=== PATIENT | female | born 1950 | race Caucasian/White ===

== ENCOUNTER 2020-06-22 13:02 | Inpatient (IN) | payer MEDICARE, OTHER ==
[~2020-06-22] VITALS: Ht 160 cm; Wt 81.2 kg
--- NOTE | 2020-06-22 13:10 | NUR ---
WORSENING CHEST PAIN SINCE YESTERDAY TESTED POSITIVE TO COVID-19 5 DAYS AGO AT A [facility]. PT AAOX4, VSS. RR EVEN & UNLABORED. DENIES DIZZINESS, N/V/D AT THIS TIME. AWAITING EVAL BY JOE. PLACED ON INLAYER SILVER, SR. WILL CONT TO MONITOR.
--- NOTE | 2020-06-22 13:18 | NUR ---
MOVE SHEET SUBMITTED
--- NOTE | 2020-06-22 13:58 | NUR ---
COVID SWAB SENT TO LAB
--- NOTE | 2020-06-22 13:58 | NUR ---
BLOOD COLLECTED AND SENT TO LAB
[2020-06-22 14:05] LABS: BASOPHILS % (AUTO) 0.5 % (0.0-2.0); EOSINOPHILS % (AUTO) 0.1 % (0.0-6.0); HEMATOCRIT 43 % (33-45); HEMOGLOBIN 14.2 g/dL (11.5-14.8); LYMPHOCYTES # (AUTO) 0.9 /CMM (0.8-4.8); LYMPHOCYTES % (AUTO) 25.1 % (20.0-44.0); MEAN CORPUSCULAR HGB CONC 33 g/dl (31.0-36.0); MEAN CORPUSCULAR VOLUME 90 fL (82-100); MONOCYTES # (AUTO) 0.5 /CMM (0.1-1.30); MONOCYTES % (AUTO) 12.3 % (2.0-12.0); NEUTROPHILS # (AUTO) 2.3 /CMM (1.8-8.9); PLATELET COUNT (AUTO) 131 /CMM (150-450); RED BLOOD CELL COUNT(AUTO) 4.79 MIL/uL (4.0-5.2); WHITE BLOOD COUNT (AUTO) 3.7 K/uL (4.3-11.0)
[2020-06-22 14:21] LABS: D-DIMER 1.97 mg/L(FEU (0.17-0.50)
[2020-06-22] MEDS ORDERED: CHOL100062 PO (14:27)
[2020-06-22] MEDS ORDERED: ASCO-352 PO (14:27)
[2020-06-22] MEDS ORDERED: ZINC50TA65 PO (14:27)
[2020-06-22] MEDS ORDERED: ACET-868 PO (14:27)
[2020-06-22] MEDS ORDERED: ROSU10TA29 PO (14:27)
[2020-06-22] MEDS ORDERED: ASPI-1169 PO (14:27)
[2020-06-22] MEDS ORDERED: AZITHROMYCIN 500 MG in IV D5W 250 ML IV ONE (15:00)
[2020-06-22] MEDS ORDERED: CEFTRIAXONE 1 G in IV D5W 50 ML IV ONE (15:00)
[2020-06-22 15:05] LABS: ALANINE AMINOTRANSFERASE 64 U/L (12-78); ALBUMIN 3.1 g/dL (3.4-5.0); ALKALINE PHOSPHATASE 66 U/L (46-116); ASPARTATE AMINOTRANSFERASE 78 U/L (15-37); B-TYPE NATRIURETIC PEPTIDE 65 PG/ML (0-125); BILIRUBIN,TOTAL 0.3 mg/dL (0.2-1.0); CALCIUM, SERUM 8.7 mg/dL (8.5-10.1); CARBON DIOXIDE 27 mmol/L (21-32); CHLORIDE 101 mmol/L (98-107); CREATININE 0.9 mg/dL (0.6-1.3); GLUCOSE 98 mg/dL (74-106); POTASSIUM 3.7 mmol/L (3.5-5.1); SODIUM SERUM 137 mmol/L (136-145); TOTAL PROTEIN, SERUM 7.3 g/dL (6.4-8.2); UREA NITROGEN, BLOOD 15 mg/dL (7-18)
--- NOTE | 2020-06-22 15:16 | NUR ---
PT STABLE, ON TELE, SR. VSS. NO RESP DISTRESS NOTED AT THIS TIME. WILL CONT TO MONITOR.
[2020-06-22 15:19] LABS: CREATINE KINASE, TOTAL 274 U/L (26-192); FERRITIN 859 ng/mL (8-388)
[2020-06-22 15:20] LABS: C-REACTIVE PROTEIN 4.4 mg/dL (0.0-0.9)
[2020-06-22] MEDS ORDERED: IOHEXOL-350 100 ML VIAL IV ONE (15:23)
[2020-06-22] MEDS ORDERED: IV NS 0.9% 250 ML IV ONE (15:23)
--- NOTE | 2020-06-22 16:00 | NUR ---
PT TO CT VIA RIDGE
--- NOTE | 2020-06-22 16:15 | NUR ---
PT BACK IN RM 5
--- NOTE | 2020-06-22 17:04 | NUR ---
CALLED SAMANTHA FOR READ.
--- NOTE | 2020-06-22 17:06 | NUR ---
PT ASLEEP, EASILY AWAKEN BY VERBAL STIMULI. VSS. RR EVEN & UNLABORED. NAD NOTED AT THIS TIME. WILL CONT TO MONITOR.
--- NOTE | 2020-06-22 18:20 | NUR ---
GOT BED 206
[2020-06-22] MEDS ORDERED: MAG HYDROX/AL HYDROX/SIMETH 30 ML UDC PO PRN (18:30)
[2020-06-22] MEDS ORDERED: Z GUARD REMEDY 2 OZ OINT TP PRN (18:30)
[2020-06-22] MEDS ORDERED: MAGNESIUM HYDROXIDE 30 ML UDC PO PRN (18:30)
[2020-06-22] MEDS ORDERED: HYDROCODONE/APAP 5/325MG TABLET PO PRN (18:30)
[2020-06-22] MEDS ORDERED: ONDANSETRON HCL/PF 4 MG/2 ML VIAL IVP PRN (18:30)
[2020-06-22] MEDS ORDERED: DEXAMETHASONE 1 MG TABLET PO ONE (18:30)
--- NOTE | 2020-06-22 19:39 | NUR ---
REPORT GIVEN TO RAMON LAYTON FOR GURWINDER
[2020-06-22 20:00] VITALS: BP 123/67
[2020-06-22] MEDS ORDERED: REMDESIVIR IV ONE (20:00)
[2020-06-22] MEDS ORDERED: NS 0.9% IV ONE (20:00)
--- NOTE | 2020-06-22 20:15 | NUR ---
MIX MAKER OPENING NOTES RECEIVED PATIENT FROM ER VIA buySAFERNEY ALERT AND ORIENTED X 3 MARSHALLESE SPEAKING. AMBULATORY, VERBALLY RESPONSIVE AND ABLE TO FOLLOW DIRECTIONS. BREATHING REGULAR AND UNLABORED ON OXYGEN AT 3L/MIN VIA NASAL CANNULA, LATEST SPO2 99%. RIGHT AC G20 AND RIGHT WRIST G22 IV LINES INTACT AND PATENT, FLUSHING WELL WITH NO BLEEDING OR S/S OF INFILTRATION NOTED. BODY ASSESSMENT DONE, SKIN INTACT CLEAN AND DRY. ATTACHED ON CARDIAC MONITORING WITH NSR ON 78bpm. DENIES SUICIDAL IDEATION OR PAIN/DISCOMFORT AT THIS TIME. WISHED TO BE FULL CODE. DVT PUMP ON. BED LOW AND LOCKED ON SEMI FOWLERS POSITION. CALL LIGHT IN REACH. BED ALARM ON. WILL CONTINUE TO MONITOR.
--- NOTE | 2020-06-22 20:26 | NUR ---
PT TRANSFERRED TO ROOM VIA ACLS PROTOCOL
[2020-06-22 20:30] VITALS: BP 123/67
--- NOTE | 2020-06-22 20:30 | NUR ---
DISPENSING LEAD NOTES BODY TEMP 100.4; TYLENOL 650MG GIVEN BY MOUTH. COOLING MEASURES PROVIDED. WILL RECHECK TEMPERATURE IN 1HR.
[2020-06-22] MEDS: ENOXAPARIN SODIUM 40 MG/0.4 ML DISP.SYRIN SQ SCH (21:02)
[2020-06-22] MEDS: ACETAMINOPHEN 325 MG TABLET PO PRN (21:19)
--- NOTE | 2020-06-22 21:30 | NUR ---
WILDLIFE PROTECTOR NOTES BODY TEMP. 98.9
[2020-06-22 22:05] LABS: ALBUMIN 2.9 g/dL (3.4-5.0); BILIRUBIN,DIRECT 0.1 mg/dL (0.0-0.2); BILIRUBIN,TOTAL 0.3 mg/dL (0.2-1.0); CALCIUM, SERUM 8.2 mg/dL (8.5-10.1); CREATININE 0.8 mg/dL (0.6-1.3); POTASSIUM 3.8 mmol/L (3.5-5.1)
[2020-06-23] VITALS: BP 101/58
[2020-06-23 04:00] VITALS: BP 114/63
[2020-06-23] MEDS: PANTOPRAZOLE 40 MG TABLET.DR PO SCH (06:32)
[2020-06-23] MEDS: ACETAMINOPHEN 325 MG TABLET PO PRN ×3 (06:32→21:06)
--- NOTE | 2020-06-23 06:40 | NUR ---
SHIRT IRONER CLOSING NOTES PATIENT IN BED ALERT AND ORIENTED X 3 S[place]TH [place]OREAN SPEAKING. AFEBRILE WITH NO S/S OF DISTRESS OBSERVED, LATEST SPO2 98%. RIGHT AC G20 AND RIGHT WRIST G22 IV LINES PATENT AND FLUSHING WELL. MAINTAINED ON CARDIAC MONITORING WITH NSR ON 80bpm. COMPLAINED OF 3/10 HEADACHE. TYLENOL 650MG GIVEN BY MOUTH. NON-PHARMACOLOGICAL INTERVENTIONS PROVIDED. BED LOW AND LOCKED ON SEMI FOWLERS POSITION. CALL LIGHT IN REACH. BED ALARM ON. WILL ENDORSE TO MORNING SHIFT FOR GURWINDER.
[2020-06-23 07:11] LABS: BASOPHILS % (AUTO) 0.3 % (0.0-2.0); HEMATOCRIT 43 % (33-45); HEMOGLOBIN 13.9 g/dL (11.5-14.8); LYMPHOCYTES # (AUTO) 1.2 /CMM (0.8-4.8); LYMPHOCYTES % (AUTO) 36.5 % (20.0-44.0); MEAN CORPUSCULAR HGB CONC 33 g/dl (31.0-36.0); MEAN CORPUSCULAR VOLUME 90 fL (82-100); MONOCYTES # (AUTO) 0.5 /CMM (0.1-1.30); NEUTROPHILS # (AUTO) 1.6 /CMM (1.8-8.9); NEUTROPHILS % (AUTO) 49.2 % (43.0-81.0); PLATELET COUNT (AUTO) 142 /CMM (150-450); RED BLOOD CELL COUNT(AUTO) 4.72 MIL/uL (4.0-5.2); WHITE BLOOD COUNT (AUTO) 3.3 K/uL (4.3-11.0)
[2020-06-23 07:52] LABS: CALCIUM, SERUM 8.5 mg/dL (8.5-10.1); CREATININE 0.7 mg/dL (0.6-1.3); MAGNESIUM 2.5 mg/dL (1.8-2.4); PHOSPHORUS 4.1 mg/dL (2.5-4.9); POTASSIUM 3.7 mmol/L (3.5-5.1)
--- NOTE | 2020-06-23 07:52 | NUR ---
COMMAND AND CONTROL OPENING SHIFT NOTES RECEIVED PATIENT RESTING IN BED A/O X 3 [place] SPEAKING. ON O2 @3L VIA NC WITH NO S/S OF ACUTE RESPIRATORY DISTRESS NOTED. PATIENT ON TELE MONITOR WITH NSR AND EPISODES OF SINUS DELVIN, IV TO RT AC #20G AND RT WRIST #22G. BED IS AT LOWEST POSITION AND LOCKED WITH SIDE RAILS UP X2 AND CALL LIGHT IN REACH.WILL CONTINUE TO MONITOR PATIENT THROUGHOUT SHIFT. ALL SAFETY PRECAUTIONS IN PLACE
[2020-06-23 08:04] LABS: THYROID STIMULATING HORMONE 0.559 uIU/mL (0.358-3.74)
[2020-06-23] MEDS: ASPIRIN 81 MG TAB.CHEW PO SCH (08:51)
[2020-06-23] MEDS: CHOLECALCIFEROL 1,000 UNIT TABLET (VIT D3) PO SCH (08:51)
[2020-06-23 09:16] LABS: C-REACTIVE PROTEIN 6.5 mg/dL (0.0-0.9)
[2020-06-23 09:31] VITALS: BP 110/66
[2020-06-23] MEDS ORDERED: GUAIFENESIN/D-METHORPHAN HB 5 ML UDC PO PRN (10:30)
--- NOTE | 2020-06-23 13:30 | NUR ---
Tele/RN - Notes Lab called, pt tested positive for Covid PCR. Dr. Saldana made aware.
[2020-06-23] MEDS: AZITHROMYCIN 500 MG in IV D5W 250 ML IV SCH (14:39)
[2020-06-23] MEDS: CEFTRIAXONE 1 G in IV D5W 50 ML IV SCH (15:40)
[2020-06-23 16:00] VITALS: BP 110/60
[2020-06-23] MEDS: DOCUSATE SODIUM 100 MG CAPSULE PO SCH (16:18)
[2020-06-23] MEDS: ENOXAPARIN SODIUM 40 MG/0.4 ML DISP.SYRIN SQ SCH (17:49)
--- NOTE | 2020-06-23 18:10 | NUR ---
CHIEF PHARMACIST CLOSING SHIFT NOTES PATIENT RESTING IN BED A/O X 3 PERUVIAN SPEAKING. SHE IS ON O2 @3L VIA NC WITH NO SIGNS OF SOB, NO SIGNS OF ACUTE RESPIRATORY DISTRESS NOTED. PT BREATHING EVEN AND UNLABORED. WITH INTERMITTENT COUGHING NOTED. PATIENT IS ON TELE MONITOR WITH NSR AND SINUS DELVIN RANGING 5O'S BPM. IV TO RT AC #20G AND RT WRIST #22G PATENT AND INTACT. NO REDNESS OR SWELLING NOTED, NO SIGNS OF INFILTRATION NOTED. PATIENT IS AMBULATORY, WITH BRP. SKIN INTACT. C/O MILD BACK PAIN, TYLENOL ADMINISTERED FOR PAIN. BED IS AT LOWEST POSITION AND LOCKED WITH SIDE RAILS UP X2; CALL LIGHT IS WITHIN REACH. ALL SAFETY PRECAUTIONS IN PLACE.WILL ENDORSE TO MANAGEMENT TRAINER
--- NOTE | 2020-06-23 19:31 | NUR ---
MINERAL ECONOMIST OPENING NOTES PATIENT AWAKE IN BED. A/OX3; ABLE TO VERBALIZE NEEDS. ON 3L NC; NO S/S OF ACUTE RESPIRATORY DISTRESS; BREATHING IS EVEN AND UNLABORED. NO C/O PAIN AT THIS TIME. TELE MONITOR READING NSR, HEART RATE 75. IV PRESENT ON RIGHT WRIST, SIZE 22, INTACT & PATENT, HEP LOCKED. IV PRESENT ON RIGHT AC SIZE 20, INTACT & PATENT, HEP LOCKED. CONTACT/DROPLET PRECAUTIONS IN PLACE FOR POSITIVE COVID 19. SAFETY MEASURES IN PLACE AND PATIENT'S NEEDS MET. BED LOCKED, HOB ELEVATED, SIDE RAILS X2, CALL LIGHT WITHIN REACH. WILL CONTINUE TO MONITOR.
[2020-06-23 20:00] VITALS: BP 103/66
[2020-06-23 20:13] LABS: ALBUMIN 2.6 g/dL (3.4-5.0); BILIRUBIN,DIRECT 0.1 mg/dL (0.0-0.2); BILIRUBIN,TOTAL 0.2 mg/dL (0.2-1.0); CALCIUM, SERUM 8.2 mg/dL (8.5-10.1); CREATININE 0.8 mg/dL (0.6-1.3); POTASSIUM 3.3 mmol/L (3.5-5.1); TOTAL PROTEIN, SERUM 6.5 g/dL (6.4-8.2)
[2020-06-23] MEDS: REMDESIVIR IV SCH (20:28)
[2020-06-23] MEDS: NS 0.9% IV SCH (20:28)
[2020-06-23] MEDS: ATORVASTATIN 10 MG TABLET PO SCH (21:06)
[2020-06-23 21:51] VITALS: BP 103/66
[2020-06-24] VITALS (7 sets, daily range): BP systolic 101–125; BP diastolic 52–66
[2020-06-24] MEDS: ACETAMINOPHEN 325 MG TABLET PO PRN ×2 (06:12→16:18)
[2020-06-24] MEDS: PANTOPRAZOLE 40 MG TABLET.DR PO SCH (06:32)
[2020-06-24 06:35] LABS: BASOPHILS % (AUTO) 0.3 % (0.0-2.0); EOSINOPHILS % (AUTO) 0.5 % (0.0-6.0); HEMATOCRIT 43 % (33-45); HEMOGLOBIN 14.2 g/dL (11.5-14.8); LYMPHOCYTES # (AUTO) 1.6 /CMM (0.8-4.8); LYMPHOCYTES % (AUTO) 32.1 % (20.0-44.0); MEAN CORPUSCULAR HGB CONC 33 g/dl (31.0-36.0); MEAN CORPUSCULAR VOLUME 89 fL (82-100); MONOCYTES # (AUTO) 0.5 /CMM (0.1-1.30); MONOCYTES % (AUTO) 10.3 % (2.0-12.0); NEUTROPHILS # (AUTO) 2.8 /CMM (1.8-8.9); NEUTROPHILS % (AUTO) 56.8 % (43.0-81.0); PLATELET COUNT (AUTO) 157 /CMM (150-450); RED BLOOD CELL COUNT(AUTO) 4.84 MIL/uL (4.0-5.2)
[2020-06-24 07:25] LABS: CALCIUM, SERUM 8.4 mg/dL (8.5-10.1); CREATININE 0.7 mg/dL (0.6-1.3); MAGNESIUM 2.4 mg/dL (1.8-2.4); PHOSPHORUS 2.8 mg/dL (2.5-4.9); POTASSIUM 3.7 mmol/L (3.5-5.1)
--- NOTE | 2020-06-24 07:57 | NUR ---
NATIONAL ACCOUNT MANAGER CLOSING NOTES PATIENT AWAKE IN BED. A/OX3; ON 3L NC; NO S/S OF ACUTE RESPIRATORY DISTRESS; BREATHING IS EVEN AND UNLABORED. NO C/O PAIN AT THIS TIME. TELE MONITOR READING NSR. IV PRESENT ON RIGHT WRIST, SIZE 22, INTACT & PATENT, HEP LOCKED. IV PRESENT ON RIGHT AC SIZE 20, INTACT & PATENT, HEP LOCKED. SAFETY MEASURES IN PLACE AND PATIENT'S NEEDS MET. BED LOCKED, HOB ELEVATED, SIDE RAILS X2, CALL LIGHT WITHIN REACH. ENDORSED TO DAY SHIFT RN PLAN OF CARE.
--- NOTE | 2020-06-24 08:08 | NUR ---
RN OPEN NOTES PATIENT IS A/O X 3 WITH NO SIGNS OF ACUTE DISTRESS ON 5L OF NASAL CANNULA SPO2 AT 96%, NO SIGNS OF PAIN AT THIS MOMENT. IV R WRIST#22 G INTACT AND R AC #20G INTACT. TELE MONITOR SB/SR 50-60'S. COUGHING PRESENT. SAFETY MEASURES ARE APPLIED, BED IS LOW AND LOCKED POSITION. SIDE RAILS UP X 2 FOR SAFETY. CALL LIGHT WITHIN REACH. WILL CONTINUE TO MONITOR.
[2020-06-24] MEDS ORDERED: PNEUMOCOCCAL 23-VAL P-SAC VAC 0.5 ML VIAL SQ ONE (09:00)
[2020-06-24 09:01] LABS: ALBUMIN 2.6 g/dL (3.4-5.0); BILIRUBIN,DIRECT 0.1 mg/dL (0.0-0.2); BILIRUBIN,TOTAL 0.2 mg/dL (0.2-1.0); TOTAL PROTEIN, SERUM 6.6 g/dL (6.4-8.2)
[2020-06-24] MEDS: CHOLECALCIFEROL 1,000 UNIT TABLET (VIT D3) PO SCH (09:22)
[2020-06-24] MEDS: ASPIRIN 81 MG TAB.CHEW PO SCH (09:23)
[2020-06-24] MEDS: DOCUSATE SODIUM 100 MG CAPSULE PO SCH (09:23)
--- NOTE | 2020-06-24 09:55 | NUR ---
PATIENT COMPLAINED OF FEELING CHEST TIGHTNESS, SPO2 AT 98% IN 3L OF NASAL CANNULA AND HOB ELEVATED. INFORMED DR. ROBERTSON AND ORDERED INHALER. NOTED AND CARRIED OUT. WILL CONTINUE TO MONITOR.
[2020-06-24] MEDS ORDERED: ALBUTEROL SULFATE INH 18 GM HFA.AER.AD IH PRN (12:00)
--- NOTE | 2020-06-24 14:55 | NUR ---
UNABLE TO TRANSFUSE PLASMA BECAUSE BAR CODE FAILED TO MATCH PATIENTS UNIT BAG, AFTER SEVERAL TIMES OF LAB TRYING TO FIX THE ISSUE OF THE SCAN BAR, THEY HAD TO TAKE THE PLASMA BAG SINCE THE BAG WAS OUT FOR LONGER THAN 30 MINS. INFORMED CHARGE NURSE SUREKHA AND DR. BEVERLY. DR. BEVERLY RE-ORDERED ANOTHER SET OF PLASMA.
[2020-06-24] MEDS: AZITHROMYCIN 500 MG in IV D5W 250 ML IV SCH (15:09)
--- NOTE | 2020-06-24 15:59 | NUR ---
KAVYA FROM BLOOD BANK SAID PLASMA WONT BE READY UNTIL 1-2 DAYS BECAUSE IT COMES FROM [place], SHE STATED THAT THE PLASMA WAS GIVING TO ME 2 HOURS AT 1230 BUT I EXPLAINED TO HER THAT THAT PLASMA DID NOT STAY WITH ME THE WHOLE 2 HOURS SINCE I HAD TO GO BACK AND FORTH TO LAB 5 TIMES TO RETURN THE PLASMA DUE TO THE FACT THAT THE BAR CODE WOULD SAY THAT IT DID NOT MATCH THE UNIT. SHE SAID THAT IT HAD TO BE OVER WRITTEN IF THE BAR CODE DID NOT SCAN AND INSISTED THAT THE PLASMA WAS ON THE FLOOR FOR 2 HOURS WHEN THE PLASMA KEPT GETTING RETURNED 5 TIMES AFTER BAR CODE WOULD FAIL TO MATCH SCHUYLER Bunch RN ATTEMPTED TO SCAN ALSO AND IT WOULD SAY THAT UNIT DID NOT MATCH. SPOKE WITH SUREKHA CHARGE NURSE AND IS AWARE.
[2020-06-24] MEDS: CEFTRIAXONE 1 G in IV D5W 50 ML IV SCH (17:08)
[2020-06-24] MEDS: ENOXAPARIN SODIUM 40 MG/0.4 ML DISP.SYRIN SQ SCH (18:19)
--- NOTE | 2020-06-24 18:42 | NUR ---
BIOMEDICAL EQUIPMENT TECHNICIAN CLOSED NOTES PATIENT IS A/O X 3 WITH NO SIGNS OF ACUTE DISTRESS IN ROOM AIR SPO2 92% ON TELE MONITOR SB 56. NO SIGNS OF PAIN AT THIS MOMENT. IV R WRIST#22 G INTACT AND R AC #20G INTACT. PATIENT KEPT CLEAN AND DRY. ALL NEEDS, CARE, TREATMENT AND MEDICATIONS ADMINISTERED ANTICIPATED PER ORDER. SAFETY MEASURES ARE APPLIED, BED IS LOW AND LOCKED POSITION. SIDE RAILS UP X 2 FOR SAFETY. CALL LIGHT WITHIN REACH. WILL ENDORSE TO THE NEXT BIOSOLIDS MANAGEMENT TECHNICIAN.
--- NOTE | 2020-06-24 19:30 | NUR ---
television maintenance worker opening notes received patient in bed. a/ox3. maltese speaking, able to make basic needs known. toerating room air. respirations even and unlabored. no s/s sob noted. no s/s pain noted. external tele monitor reads sinus rhythm hr 67. in no apparent distress. iv access in right wrist#22 and rac#20 patent and saline locked. bed is low and locked, hob elevated in semi fowlers, side rails up x2, call light within reach. will continue to monitor.
[2020-06-24 20:02] LABS: ALBUMIN 2.6 g/dL (3.4-5.0); BILIRUBIN,DIRECT 0.1 mg/dL (0.0-0.2); BILIRUBIN,TOTAL 0.2 mg/dL (0.2-1.0); CALCIUM, SERUM 8.1 mg/dL (8.5-10.1); CREATININE 0.7 mg/dL (0.6-1.3); POTASSIUM 3.3 mmol/L (3.5-5.1); TOTAL PROTEIN, SERUM 6.6 g/dL (6.4-8.2)
[2020-06-24] MEDS: REMDESIVIR IV SCH (20:06)
[2020-06-24] MEDS: NS 0.9% IV SCH (20:06)
[2020-06-24] MEDS: ZOLPIDEM TARTRATE 5 MG TABLET PO PRN (21:32)
--- NOTE | 2020-06-24 21:32 | NUR ---
ORNAMENTAL METAL WORKER NOTE ADMINISTERED PRN AMBIEN 5MG PER PATIENT REQUEST FOR SLEEP. WILL CONTINUE TO MONITOR.
[2020-06-24] MEDS: ATORVASTATIN 10 MG TABLET PO SCH (23:14)
[2020-06-25] VITALS (7 sets, daily range): BP systolic 106–128; BP diastolic 68–73
--- NOTE | 2020-06-25 06:55 | NUR ---
telecom analyst closing notes patient resting in bed. a/ox3. tolerating room air. no resp distress. no c/o pain. external tele monitor reads sinus rhythm. no distress. iv access maintained in right wrist#22 and rac#20 patent and saline locked. bed remains low and locked, hob elevated in semi fowlers, side rails up x2, call light within reach. will endorse to next shift.
[2020-06-25] MEDS: PANTOPRAZOLE 40 MG TABLET.DR PO SCH ×2 (07:30→09:23)
--- NOTE | 2020-06-25 07:30 | NUR ---
RN NOTE THE PATIENT IS RECEIVED IN BED. THE PATIENT IS ALERT AND ORIENTED X4. DENIES SOB. PATIENT IS IN ROOM AIR. RESPIRATION REGULAR AND UNLABORED. DENIES PAIN. THE PATIENT IS IN NO APPARENT DISTRESS. TELE BOX READING IS SINUS TACHYCARDIA 106. RIGHT WRIST G 22 PATENT AND RAC G 20 PATENT AND BOTH SALINE LOCKED. BED LOW AND LOCKED. SIDE RAILS UP X2. CALL LIGHT WITHIN REACH. WILL CONTINUE TO MONITOR.
[2020-06-25] MEDS: DOCUSATE SODIUM 100 MG CAPSULE PO SCH ×2 (09:00→09:23)
[2020-06-25] MEDS: ASPIRIN 81 MG TAB.CHEW PO SCH (09:23)
[2020-06-25] MEDS: CHOLECALCIFEROL 1,000 UNIT TABLET (VIT D3) PO SCH (09:23)
[2020-06-25 11:45] LABS: BASOPHILS % (AUTO) 0.2 % (0.0-2.0); EOSINOPHILS % (AUTO) 0.2 % (0.0-6.0); HEMATOCRIT 42 % (33-45); HEMOGLOBIN 13.8 g/dL (11.5-14.8); LYMPHOCYTES # (AUTO) 1.3 /CMM (0.8-4.8); LYMPHOCYTES % (AUTO) 24.5 % (20.0-44.0); MEAN CORPUSCULAR HGB CONC 33 g/dl (31.0-36.0); MEAN CORPUSCULAR VOLUME 88 fL (82-100); MONOCYTES # (AUTO) 0.7 /CMM (0.1-1.30); MONOCYTES % (AUTO) 14.4 % (2.0-12.0); NEUTROPHILS # (AUTO) 3.1 /CMM (1.8-8.9); NEUTROPHILS % (AUTO) 60.7 % (43.0-81.0); PLATELET COUNT (AUTO) 188 /CMM (150-450); RED BLOOD CELL COUNT(AUTO) 4.74 MIL/uL (4.0-5.2); WHITE BLOOD COUNT (AUTO) 5.1 K/uL (4.3-11.0)
[2020-06-25 12:01] LABS: CALCIUM, SERUM 8.2 mg/dL (8.5-10.1); CREATININE 0.7 mg/dL (0.6-1.3); MAGNESIUM 2.4 mg/dL (1.8-2.4); PHOSPHORUS 2.7 mg/dL (2.5-4.9); POTASSIUM 3.4 mmol/L (3.5-5.1)
[2020-06-25] MEDS ORDERED: POTASSIUM CHLORIDE 20 MEQ TAB.PRT.SR PO SCH (16:00)
[2020-06-25] MEDS: CEFTRIAXONE 1 G in IV D5W 50 ML IV SCH (16:48)
[2020-06-25 17:11] LABS: CALCIUM, SERUM 8.4 mg/dL (8.5-10.1); CREATININE 0.7 mg/dL (0.6-1.3); POTASSIUM 3.3 mmol/L (3.5-5.1)
[2020-06-25 17:17] LABS: ALBUMIN 2.5 g/dL (3.4-5.0); BILIRUBIN,DIRECT 0.1 mg/dL (0.0-0.2); BILIRUBIN,TOTAL 0.3 mg/dL (0.2-1.0); TOTAL PROTEIN, SERUM 6.3 g/dL (6.4-8.2)
--- NOTE | 2020-06-25 19:00 | NUR ---
RN NOTE THE PATIENT IS ALERT AND ORIENTED X3. IN ROOM AIR AND OXYGEN SATURATION IS AT 95%. DENIES SOB. RESPIRATION REGULAR AND UNLABORED. DENIES PAIN. THE PATIENT IS IN NO APPARENT DISTRESS. R WRIST G 22 AND RAC G 20 PATENT AND SALINE LOCKED. BED LOW AND LOCKED. SIDE RAILS UP X3. CALL LIGHT WITHIN REACH. ENDORSED TO RETANNED LEATHER ROLLER.
--- NOTE | 2020-06-25 19:30 | NUR ---
TELE/RN OPENING NOTES RECEIVED PATIENT IN BED RESTING, PATIENT IS ALERT AND ORIENTED X 3. NO SIGNS OF SOB OR RESPIRATORY DISTRESS NOTED. PATIENT BREATHING IS EVEN AND UNLABORED. PATIENT IS NO SIGNS OF DISTRESS. PATIENT TOLERATING RA WELL. PATIENT HAS IV ACCESS ON RIGHT WRIST #22 G AND RIGHT AC #20 G. SAFETY MEASURES ARE IN PLACE, BED IS LOCKED AND PLACED IN THE LOW POSITION, SIDE RAILS UP X 2. CALL LIGHT WITHIN REACH. WILL CONTINUE TO MONITOR DURING SHIFT.
[2020-06-25] MEDS: NS 0.9% IV SCH (19:35)
[2020-06-25] MEDS: REMDESIVIR IV SCH (19:35)
[2020-06-25] MEDS: ENOXAPARIN SODIUM 40 MG/0.4 ML DISP.SYRIN SQ SCH (19:40)
[2020-06-25] MEDS: ACETAMINOPHEN 325 MG TABLET PO PRN (19:47)
--- NOTE | 2020-06-25 19:55 | NUR ---
TELE/RN NOTES PATIENT STATES MILD PAIN ON BACK AND FEET. GIVEN TYLENOL 650 MG PO. V/S ARE STABLE. WILL CONTINUE TO MONITOR.
[2020-06-25] MEDS: ATORVASTATIN 10 MG TABLET PO SCH (21:58)
[2020-06-25] MEDS: ZOLPIDEM TARTRATE 5 MG TABLET PO PRN (21:58)
--- NOTE | 2020-06-25 22:00 | NUR ---
TELE/RN NOTES PATIENT REQUESTING SLEEPING AID. PATIENT GIVEN AMBIEN 5 MG PO. V/S ARE STABLE. WILL CONTINUE TO MONITOR.
[2020-06-26] VITALS: BP 108/62
[2020-06-26 04:00] VITALS: BP 111/69
--- NOTE | 2020-06-26 06:25 | NUR ---
TELE/RN CLOSING NOTES PATIENT IN BED SLEEPING, EASY TO AROUSE. PATIENT IS ALERT AND ORIENTED X 3. NO SIGNS OF SOB OR RESPIRATORY DISTRESS NOTED. PATIENT BREATHING IS EVEN AND UNLABORED. PATIENT IS NO SIGNS OF DISTRESS. PATIENT TOLERATING RA WELL. TELE READING SR 80'S. PATIENT HAS IV ACCESS ON RIGHT WRIST #22 G AND RIGHT AC #20 G SL. ALL PATIENTS NEEDS HAVE BEEN MET DURING SHIFT. SAFETY MEASURES ARE IN PLACE, BED IS LOCKED AND PLACED IN THE LOW POSITION, SIDE RAILS UP X 2. CALL LIGHT WITHIN REACH. WILL ENDORSE CARE TO DAY SHIFT NURSE.
--- NOTE | 2020-06-26 07:31 | NUR ---
RN OPENING NOTES PATIENT IN BED SLEEPING, EASILY AROUSABLE, ALERT AND ORIENTED X 3. NO CARDIAC OR RESPIRATORY DISTRESS NOTED. NO SIGNS OF SOB NOTED. PATIENT BREATHING IS EVEN AND UNLABORED. TELE READING SR 80'S. PATIENT HAS IV ACCESS ON RIGHT WRIST #22 G AND RIGHT AC #20 G SL. ASAFETY MEASURES ARE IN PLACE, BED IS LOCKED AND PLACED IN THE LOW POSITION, SIDE RAILS UP X 2. CALL LIGHT WITHIN REACH. WILL CONT TO MONITOR.
[2020-06-26 08:00] VITALS: BP 120/71
[2020-06-26] MEDS: CHOLECALCIFEROL 1,000 UNIT TABLET (VIT D3) PO SCH (08:17)
[2020-06-26] MEDS: PANTOPRAZOLE 40 MG TABLET.DR PO SCH (08:17)
[2020-06-26] MEDS: DOCUSATE SODIUM 100 MG CAPSULE PO SCH (08:17)
[2020-06-26] MEDS: ASPIRIN 81 MG TAB.CHEW PO SCH (08:17)
--- NOTE | 2020-06-26 08:44 | NUR ---
RP UPDATES SPOKE WITHE PTS DAUGHTER LANRE AND SON IN LAW JOANNE. PROVIDED FAMILY WITH UPDATES REGARDING THE PTS CURRENT CONDITION.
--- NOTE | 2020-06-26 08:49 | NUR ---
CONVALESCENT PLASMA FOLLOWED UP WITH BLOOD BANK REGARDING CONVALESCENT PLASMA. PER BLOOD BANK, PLASMA IS NOT READY YET AND THEY WILL F/U ON IT.
[2020-06-26 10:20] LABS: BASOPHILS % (AUTO) 0.2 % (0.0-2.0); EOSINOPHILS % (AUTO) 0.5 % (0.0-6.0); HEMATOCRIT 43 % (33-45); HEMOGLOBIN 13.9 g/dL (11.5-14.8); LYMPHOCYTES # (AUTO) 1.2 /CMM (0.8-4.8); LYMPHOCYTES % (AUTO) 25.9 % (20.0-44.0); MEAN CORPUSCULAR HGB CONC 33 g/dl (31.0-36.0); MEAN CORPUSCULAR VOLUME 90 fL (82-100); MONOCYTES # (AUTO) 0.7 /CMM (0.1-1.30); MONOCYTES % (AUTO) 16.6 % (2.0-12.0); NEUTROPHILS # (AUTO) 2.6 /CMM (1.8-8.9); NEUTROPHILS % (AUTO) 56.8 % (43.0-81.0); PLATELET COUNT (AUTO) 200 /CMM (150-450); RED BLOOD CELL COUNT(AUTO) 4.76 MIL/uL (4.0-5.2); WHITE BLOOD COUNT (AUTO) 4.5 K/uL (4.3-11.0)
[2020-06-26 10:36] LABS: CALCIUM, SERUM 8.2 mg/dL (8.5-10.1); CREATININE 0.6 mg/dL (0.6-1.3); MAGNESIUM 2.5 mg/dL (1.8-2.4); PHOSPHORUS 2.3 mg/dL (2.5-4.9); POTASSIUM 3.6 mmol/L (3.5-5.1)
[2020-06-26 12:00] VITALS: BP 124/72
[2020-06-26] MEDS ORDERED: K PHOS NEUTRAL 250 MG TABLET PO ONE (12:30)
[2020-06-26 13:17] LABS: ALBUMIN 2.4 g/dL (3.4-5.0); BILIRUBIN,DIRECT 0.1 mg/dL (0.0-0.2); BILIRUBIN,TOTAL 0.4 mg/dL (0.2-1.0); TOTAL PROTEIN, SERUM 6.4 g/dL (6.4-8.2)
--- NOTE | 2020-06-26 13:30 | NUR ---
LABS OPHTHALMOLOGIST HERE FOR RE-DRAW, HOWEVER PT STRONGLY REFUSED. EXPLAINED RISK AND CONSEQUENCES AND NEGATIVE OUTCOMES OF REFUSING LAB DRAW. PT STILL REFUSED. DR. BEVERLY MADE AWARE. PER DR. BEVERLY. ITS OKAY, TRY AGAIN TOMORROW.
[2020-06-26 16:00] VITALS: BP 127/69
[2020-06-26] MEDS: CEFTRIAXONE 1 G in IV D5W 50 ML IV SCH (16:31)
[2020-06-26] MEDS: ENOXAPARIN SODIUM 40 MG/0.4 ML DISP.SYRIN SQ SCH (18:52)
[2020-06-26] MEDS: DEXAMETHASONE 4 MG TABLET PO SCH (18:52)
--- NOTE | 2020-06-26 19:30 | NUR ---
RN CLOSINGNOTES PATIENT IN BED SLEEPING, EASILY AROUSABLE, ALERT AND ORIENTED X 3. NO CARDIAC OR RESPIRATORY DISTRESS NOTED. NO SIGNS OF SOB NOTED. PATIENT BREATHING IS EVEN AND UNLABORED. TELE READING SR 80'S. PATIENT HAS IV ACCESS ON RIGHT WRIST #22 G AND RIGHT AC #20 G SL. ASAFETY MEASURES ARE IN PLACE, BED IS LOCKED AND PLACED IN THE LOW POSITION, SIDE RAILS UP X 2. CALL LIGHT WITHIN REACH. WILL ENDORSE TO NEXT SHIFT
--- NOTE | 2020-06-26 19:40 | NUR ---
COUNTRY SALES MANAGER OPEN NOTES PATIENT IS LAYING IN BED TALKING ON PHONE. A/O X3. ON RA, NO SOB/ ACUTE RESPIRATORY DISTRESS NOTED. PT DENIES ANY PAIN AT THE MOMENT. BED IS IN LOWEST LOCKED POSITION WITH SIDE RAILS UP X3, SEMI FOWLERS. CALL LIGHT IS WITHIN REACH. WILL CONTINUE TO MONITOR.
[2020-06-26 20:00] VITALS: BP 117/64
[2020-06-26] MEDS: NS 0.9% IV SCH (20:20)
[2020-06-26] MEDS: REMDESIVIR IV SCH (20:20)
[2020-06-26] MEDS: ATORVASTATIN 10 MG TABLET PO SCH (21:23)
[2020-06-26] MEDS: ZOLPIDEM TARTRATE 5 MG TABLET PO PRN (21:36)
[2020-06-26] MEDS: ACETAMINOPHEN 325 MG TABLET PO PRN (21:36)
--- NOTE | 2020-06-26 22:00 | NUR ---
AUTOMOTIVE ELECTRICAL FITTER NOTES PT'S BP BEFORE REMDESIVIR: 117/64, HR 67 PT'S BP AFTER REDMDESIVIR: 124/76, HR 63 WILL CONTINUE TO MONITOR PT FOR ANY CHANGES.
[2020-06-26 23:09] LABS: ALBUMIN 2.5 g/dL (3.4-5.0); BILIRUBIN,DIRECT 0.2 mg/dL (0.0-0.2); BILIRUBIN,TOTAL 0.4 mg/dL (0.2-1.0); CALCIUM, SERUM 8.3 mg/dL (8.5-10.1); CREATININE 0.7 mg/dL (0.6-1.3); POTASSIUM 3.6 mmol/L (3.5-5.1); TOTAL PROTEIN, SERUM 6.5 g/dL (6.4-8.2)
[2020-06-27] VITALS (9 sets, daily range): BP systolic 91–126; BP diastolic 55–80
--- NOTE | 2020-06-27 06:32 | NUR ---
SLICING MACHINE OPERATOR CLOSE NOTES PATIENT IS LAYING IN BED. A/O X3. ON RA, NO SOB/ ACUTE RESPIRATORY DISTRESS NOTED. TELE MONITOR READING SB, 56. IV IN R AC #20G IS PATENT AND INTACT. PT IS ABLE TO AMBULATE. DENIES ANY PAIN AT THE MOMENT. BED IS IN LOWEST LOCKED POSITION WITH SIDE RAILS UP X2, SEMI FOWLERS. CALL LIGHT IS WITHIN REACH. WILL ENDORSE TO AM NURSE.
--- NOTE | 2020-06-27 07:55 | NUR ---
RN NOTES RECEIVED PT IN BED, ASLEEP AND EASILY AROUSED, A/OX3-4. PT TOLERATING RA, NO ACUTE RESPIRATORY DISTRESS. ON TELEMONITORING WITH SR 72, PT DENIES ANY PAIN OR DISCOMFORT. PT KEPT COMFORTABLE. HOB ELEVATED. CALL LIGHT KEPT WITHIN REACH. PT'S BED IN LOWEST, LOCKED POSITION WITH SRX3. WILL CONTINUE PLAN OF CARE.
[2020-06-27] MEDS: DOCUSATE SODIUM 100 MG CAPSULE PO SCH (09:00)
[2020-06-27 09:10] LABS: CALCIUM, SERUM 8.5 mg/dL (8.5-10.1); CREATININE 0.5 mg/dL (0.6-1.3); MAGNESIUM 2.3 mg/dL (1.8-2.4); PHOSPHORUS 3.5 mg/dL (2.5-4.9); POTASSIUM 3.8 mmol/L (3.5-5.1)
[2020-06-27 09:30] LABS: BASOPHILS % (AUTO) 0.3 % (0.0-2.0); HEMATOCRIT 44 % (33-45); HEMOGLOBIN 14.3 g/dL (11.5-14.8); LYMPHOCYTES # (AUTO) 0.7 /CMM (0.8-4.8); LYMPHOCYTES % (AUTO) 29.3 % (20.0-44.0); MEAN CORPUSCULAR HGB CONC 33 g/dl (31.0-36.0); MEAN CORPUSCULAR VOLUME 89 fL (82-100); MONOCYTES # (AUTO) 0.2 /CMM (0.1-1.30); MONOCYTES % (AUTO) 7.6 % (2.0-12.0); NEUTROPHILS # (AUTO) 1.5 /CMM (1.8-8.9); NEUTROPHILS % (AUTO) 62.8 % (43.0-81.0); PLATELET COUNT (AUTO) 262 /CMM (150-450); RED BLOOD CELL COUNT(AUTO) 4.92 MIL/uL (4.0-5.2); WHITE BLOOD COUNT (AUTO) 2.4 K/uL (4.3-11.0)
[2020-06-27] MEDS: CHOLECALCIFEROL 1,000 UNIT TABLET (VIT D3) PO SCH (09:46)
[2020-06-27] MEDS: ASPIRIN 81 MG TAB.CHEW PO SCH (09:48)
[2020-06-27] MEDS: PANTOPRAZOLE 40 MG TABLET.DR PO SCH (09:51)
[2020-06-27] MEDS: DEXAMETHASONE 4 MG TABLET PO SCH (09:52)
--- NOTE | 2020-06-27 16:55 | NUR ---
RN NOTES BLOOD BANK CALLED AND SPOKE TO GERMAN, CONVALESCENT PLASMA IS READY. PT'S PIV IS NOT GOOD AND COULDN'T START A NEW ONE AT THIS TIME. PT REQUESTED FOR A REST AND TRY AGAIN IN A BIT. TO ADMINISTED CONVALESCENT PLASMA AND IV ATB WHEN IV SITE IS PLACED.
[2020-06-27] MEDS: ENOXAPARIN SODIUM 40 MG/0.4 ML DISP.SYRIN SQ SCH (18:46)
[2020-06-27] MEDS: ACETAMINOPHEN 325 MG TABLET PO PRN (18:57)
[2020-06-27] MEDS: CEFTRIAXONE 1 G in IV D5W 50 ML IV SCH (18:58)
--- NOTE | 2020-06-27 19:35 | NUR ---
RN NOTES PT REMAINS IN BED, AWAKE, A/OX3-4. PT TOLERATING RA, NO ACUTE RESPIRATORY DISTRESS. ON TELEMONITORING WITH SR 70, PT DENIES ANY PAIN OR DISCOMFORT. ON GOING IV ATB TO RIGHT WRIST G20, INTACT AND INFUSING. ALL NEEDS AND CARE ATTENDED. PT KEPT COMFORTABLE. HOB ELEVATED. CALL LIGHT KEPT WITHIN REACH. PT'S BED IN LOWEST, LOCKED POSITION WITH SRX3. ENDORSED TO INCOMING NIGHT NURSE FOR GURWINDER.
--- NOTE | 2020-06-27 19:35 | NUR ---
RN OPENING NOTES Received patient awake on bed, on RA. Denies any discomfort at this time. New peripheral IV line line place R wrist #20, IV ATB resumed as ordered. For convalescent plasma transfusion 1 unit. On tele monitor with NSR noted. Kept on bed clean, dry and comfortable. On fall and aspiration precautions. Will continue to monitor accordingly.
--- NOTE | 2020-06-27 20:30 | NUR ---
RN NOTES Convalescent plasma transfusion verified with RAMON Moe. Will continue to monitor accordingly.
[2020-06-27] MEDS: ATORVASTATIN 10 MG TABLET PO SCH (21:22)
[2020-06-27] MEDS: ZOLPIDEM TARTRATE 5 MG TABLET PO PRN (21:22)
--- NOTE | 2020-06-27 23:39 | NUR ---
RN NOTES Offered assistance to patient in reposition on bed, pt refused. Pt claimed she is able to reposition herself on bed.
[2020-06-28] VITALS: BP 117/70
[2020-06-28 04:00] VITALS: BP 115/72
--- NOTE | 2020-06-28 06:54 | NUR ---
RN CLOSING NOTES Pt asleep, on RA, no complaints made at this time. S/P 1 unit convalescent plasma transfusion, no ASE noted. On tele monitor with NSR noted. Kept on bed clean, dry and comfortable. Call light within easy reach. Endorsed.
[2020-06-28 08:00] VITALS: BP 115/61
[2020-06-28 08:15] LABS: BASOPHILS # (AUTO) 0.1 /CMM (0.0-0.2); BASOPHILS % (AUTO) 0.6 % (0.0-2.0); HEMATOCRIT 44 % (33-45); HEMOGLOBIN 14.3 g/dL (11.5-14.8); LYMPHOCYTES # (AUTO) 1.3 /CMM (0.8-4.8); LYMPHOCYTES % (AUTO) 14.1 % (20.0-44.0); MEAN CORPUSCULAR HGB CONC 33 g/dl (31.0-36.0); MEAN CORPUSCULAR VOLUME 89 fL (82-100); MONOCYTES # (AUTO) 1.1 /CMM (0.1-1.30); MONOCYTES % (AUTO) 12.2 % (2.0-12.0); NEUTROPHILS # (AUTO) 6.9 /CMM (1.8-8.9); NEUTROPHILS % (AUTO) 73.1 % (43.0-81.0); PLATELET COUNT (AUTO) 320 /CMM (150-450); RED BLOOD CELL COUNT(AUTO) 4.92 MIL/uL (4.0-5.2); WHITE BLOOD COUNT (AUTO) 9.4 K/uL (4.3-11.0)
[2020-06-28] MEDS: PANTOPRAZOLE 40 MG TABLET.DR PO SCH (08:33)
[2020-06-28] MEDS: CHOLECALCIFEROL 1,000 UNIT TABLET (VIT D3) PO SCH (08:33)
[2020-06-28] MEDS: ASPIRIN 81 MG TAB.CHEW PO SCH (08:34)
[2020-06-28] MEDS: DOCUSATE SODIUM 100 MG CAPSULE PO SCH (08:34)
[2020-06-28] MEDS: DEXAMETHASONE 4 MG TABLET PO SCH (08:34)
[2020-06-28 12:17] LABS: ALBUMIN 2.6 g/dL (3.4-5.0); BILIRUBIN,DIRECT 0.1 mg/dL (0.0-0.2); BILIRUBIN,TOTAL 0.4 mg/dL (0.2-1.0); CALCIUM, SERUM 8.6 mg/dL (8.5-10.1); CREATININE 0.6 mg/dL (0.6-1.3); POTASSIUM 3.5 mmol/L (3.5-5.1); TOTAL PROTEIN, SERUM 6.8 g/dL (6.4-8.2)
[2020-06-28 16:00] VITALS: BP 120/70
[2020-06-28] MEDS: CEFTRIAXONE 1 G in IV D5W 50 ML IV SCH (16:11)
[2020-06-28] MEDS: ENOXAPARIN SODIUM 40 MG/0.4 ML DISP.SYRIN SQ SCH (18:30)
--- NOTE | 2020-06-28 18:54 | NUR ---
Patient resting in bed.Breathing unlabored and even on room air , tolerating well. IV line intact and patent hl. Patient is ambulatory. All needs attended.Safety precautions in place , call light within reach. Patient will be d/c home tomorrow. Will endorse to next shift for GURWINDER
--- NOTE | 2020-06-28 19:10 | NUR ---
RN OPENING NOTES Received patient resting on bed. No complaints made. NSR on tele monitor. Will continue to monitor accordingly.
[2020-06-28 20:00] VITALS: BP 119/72
[2020-06-28 20:12] VITALS: BP 119/72
[2020-06-28] MEDS: ATORVASTATIN 10 MG TABLET PO SCH (21:26)
[2020-06-28] MEDS: ZOLPIDEM TARTRATE 5 MG TABLET PO PRN (21:26)
[2020-06-29] VITALS: BP 119/71
[2020-06-29 04:00] VITALS: BP 111/65
[2020-06-29 04:43] VITALS: BP 111/65
--- NOTE | 2020-06-29 06:55 | NUR ---
RN CLOSING NOTES Pt asleep on bed. No s/sx of discomfort noted at this time. All nursing needs attended. For D/C home today. Endorsed.
--- NOTE | 2020-06-29 07:40 | NUR ---
RN NOTES Received patient in bed resting comfortably in moderate high back rest. A/O x 3, On RA, saturating well. On tele monitor with current reading of SR. IV access on Right wrist #20, patent and intact. safety measures in place, bed in lowest locked position with side rails up x2. call light within easy reach. will continue to monitor.
[2020-06-29 08:00] VITALS: BP 125/77
[2020-06-29] MEDS: ASPIRIN 81 MG TAB.CHEW PO SCH (08:34)
[2020-06-29] MEDS: DOCUSATE SODIUM 100 MG CAPSULE PO SCH (08:34)
[2020-06-29] MEDS: CHOLECALCIFEROL 1,000 UNIT TABLET (VIT D3) PO SCH (08:34)
[2020-06-29] MEDS: PANTOPRAZOLE 40 MG TABLET.DR PO SCH (08:34)
[2020-06-29] MEDS: DEXAMETHASONE 4 MG TABLET PO SCH (08:35)
[2020-06-29 12:00] VITALS: BP 128/82
[2020-06-29 13:00] VITALS: BP 128/82
[2020-06-29] MEDS: ACETAMINOPHEN 325 MG TABLET PO PRN (14:48)
--- NOTE | 2020-06-29 16:15 | NUR ---
MASTER COASTWISE YACHT NOTES PATIENT DISCHARGE IN STABLE CONDITION. A/O X3. ABLE TO MAKE NEEDS KNOWN. V/S TAKEN, STABLE AND RECORDED. IV ACCESS REMOVED AND APPLIED PRESSURE DRESSING. NAME ARM BAND REMOVED. ALL BELONGINGS SIGNED AND CHECKED. HEALTH TEACHINGS/DISCHARGED INSTRUCTIONS GIVEN AND VERBALIZED UNDERSTANDING. PATIENT LEFT UNIT WITH NO SIGNS OF DISTRESS AND ACCOMPANIED BY RN VIA WHEELCHAIR TO THE LOBBY AND WAS PICKED UP BY TAXI. CHARGE NURSE AWARE OF DISCHARGED.
== END 2020-06-29 16:15 | disposition home or self-care (01) | DRG 871 ==
LOC: ER 13:12 → TELE2 18:32
PROVIDERS: ADMIT Student in an Organized Health Care Education/Training Program; ATTEND Nurse Practitioner Acute Care
PROC: XW13325 Transfusion of Convalescent Plasma (Nonautologous) into Peripheral Vein, Percutaneous Approach, New Technology Group 5 (ICD-10-PCS; principal; 2020-06-27)
DX: A41.89 Other specified sepsis (principal); J96.01 Acute respiratory failure with hypoxia; U07.1 COVID-19; J12.89 Other viral pneumonia; E44.0 Moderate protein-calorie malnutrition; D69.6 Thrombocytopenia, unspecified; E78.5 Hyperlipidemia, unspecified; R74.01 Elevation of levels of liver transaminase levels; R07.9 Chest pain, unspecified; Z68.31 Body mass index [BMI] 31.0-31.9, adult
CPT/HCPCS: 36415; 71045-TC; 80048-TC; 80053-TC; 80061-TC; 80076-TC; 82550-TC; 82553; 82728-TC; 83605-TC; 83615-TC; 83735-TC; 83880; 84100-TC; 84439-TC; 84443-TC; 84484-TC; 85025-TC; 85378-TC; 85610-TC; 85730-TC; 86140-TC; 86850-TC; 87040-TC; 87081-TC; 90732; 97112-TC; 97116-TC; 97530-TC; A4349; G0378; J0456; J0696; J1650; J7040; J7050; J7060; J8540; P9017-BL; Q9967; U0003